=== PATIENT | female | born 1975 | race Caucasian/White ===

== ENCOUNTER 2021-01-30 17:02 | Emergency (ER) | payer BC, MEDICAID ==
[2021-01-30] MEDS ORDERED: Cyclobenzaprine 10 MG Tab PO ONE (20:01)
[2021-01-30] MEDS ORDERED: Ibuprofen 600 MG Tab PO ONE (20:01)
--- NOTE | 2021-01-30 20:39 | CR ---
Indication: Pain after fall Technique: Three views Comparison: None Findings: Bones: No evidence of fracture. Disc spaces: 8 millimeter anterolisthesis at L4-5 with disc space narrowing. Prominent facet hypertrophy. Disc space narrowing facet hypertrophy L5-S1. Scattered anterior osteophytes at the lower thoracic spine. Soft tissues: Unremarkable. Dictated by Avinash Barnes MD @ 01/30/2021 8:38:06 PM (Electronically Signed)
--- NOTE | 2021-01-30 20:46 | EDM.PDOC ---
ED HPI GENERAL MEDICAL PROBLEM - General Chief Complaint: Back Pain or Injury Stated Complaint: SLIPPED YESTERDAY, LT KNUCKLE AND BACK PAIN Time Seen by Provider: 01/30/21 19:33 - History of Present Illness INITIAL COMMENTS - FREE TEXT/NARRATIVE: HISTORY AND PHYSICAL: History of present illness: Is a 45-year-old female who presents ER today secondary to pain to her left ring finger at the PIP joint as well as pain to her right lower back that occurred after a fall earlier this morning. Patient reports that she had some discomfort to her back and increased swelling to her finger. She reports that she has 3 rings on on her left ring finger that she is unable to remove. Patient reports that she does have a history of a fracture to the finger in the past as well. Patient denies any weakness to her upper or lower extremities. Patient denies any loss of bowel or bladder function. Patient reports that she does have a history of osteoporosis to her back. Patient denies any paresthesias to her perineal region. Review of systems: As per history of present illness and below otherwise all systems reviewed and negative. Past medical history: As per history of present illness and as reviewed below otherwise nonco ntributory. Surgical history: As per history of present illness and as reviewed below otherwise noncontributory. Social history: No reported history of drug abuse. Family history: As per history of present illness and as reviewed below otherwise noncontributory. Physical exam: This patient was seen and evaluated during the 2019 SARS-CoV-2 novel coronavirus pandemic period. Community viral transmission is ongoing at time of this encounter and the emergency department is operating under pandemic response procedures. Constitutional: Patient is oriented to person, place, and time. Appears well- developed and well-nourished. No distress. HEENT: Moist mucous membranes Head: Normocephalic and atraumatic Eyes: Right eye exhibits no discharge. Left eye exhibits no discharge. No scleral icterus Neck: Normal range of motion. No tracheal deviation present. Cardiovascular: Normal rate and regular rhythm. Pulmonary: Effort normal, no respiratory distress. Abdominal: No distention Musculoskeletal: Normal range of motion Neurologic: Alert and oriented to person, place and time. Skin: [place], warm and dry. Psychiatric: Normal mood and affect. Behavior is normal. Judgment and thought content normal. Nursing note and vital signs have been reviewed Patient's ER physical exam is significant for tenderness to palpation to her right lower back. Patient has no point CT or L-spine tenderness. Patient denies any loss of consciousness or head pain. Patient does have soft tissue swelling to her proximal left ring finger with pain with range of motion to her PIP joint. Diagnostics: X-ray of lumbar spine: No acute fracture or dislocation identified. This was reviewed by myself X-ray of left index finger: No acute fracture or dislocation of PIP joint which is the area of concern. Patient does appear to have an old fracture of the DIP joint of her left ring finger which is nontender and no swelling clinically and no evidence of fracture on clinical exam. Therapeutics: 3 rings removed with ring cutters in the ED by myself. This was done without any complications or difficulty. Patient's neurological exam is normal post ring removal. Patient has brisk capillary refill no evidence of abrasions or open wounds to the finger. Assessment and plan: 45-year-old who presents ER today secondary to a fall earlier today and now has pain discomfort to her lower back as well as swelling to her left ring finger. Patient's radiologic studies have been negative for any fracture or dislocations. Patient's rings were cut off in the ED with ring cutters without complications. Patient be discharged home with a prescription for Flexeril and ibuprofen instructions to follow-up with her primary care physician. Patient is ambulating in the ED with normal gait. Patient has no difficulty with ambulating with pain or strength. Patient did receive a dose of Flexeril and ibuprofen here in the ED while waiting for x-rays reports that she does feel much better. Reassessment at the time of disposition demonstrates that the patient is in no acute distress. The patient has remained stable throughout the entire ED visit and is without objective evidence for acute process requiring urgent intervention or hospitalization. The patient is stable for discharge, counseling is provided as documented above, discussed symptomatic treatment and specific conditions for return. I have spoken with the patient/caregiver and discussed todays findings, in addition to providing specific details for the plan of care. Questions are answered and there is agreement with the plan. Definitive disposition and diagnosis as appropriate pending reevaluation and review of above. Lower Back Pain Score (Numeric/FACES): 8 Left Finger-Ring Pain Score (Numeric/FACES): 4 - Related Data Allergies Allergy/AdvReac Type Severity Reaction Status Date / Time No Known Allergies Allergy Verified 10/15/21 18:18 Home Meds: Home Meds Cyclobenzaprine [Flexeril] 10 mg PO TID PRN #20 tab 01/30/21 [Rx] Ibuprofen 600 mg PO Q6HR PRN #30 tablet 01/30/21 [Rx] Past Medical History HEENT History: Reports: Impaired Vision GAS DISPATCHER History: Reports: Other (See Below) Other GAS DISPATCHER History: tubal rupture during Musculoskeletal History: Reports: Arthritis, Other (See Below) Other Musculoskeletal History: DJD Neurological History: Reports: Migraines Psychiatric History: Reports: Anxiety Oncologic (Cancer) History: Reports: Cervix - Infectious Disease History Infectious Disease History: Reports: Chicken Pox - Past Surgical History Musculoskeletal Surgical History: Reports: None Social & Family History - Family History Family Medical History: No Pertinent Family History - Tobacco Use Tobacco Use Status *Q: Current Every Day Tobacco User Years of Tobacco use: 20 Packs/Tins Daily: 1 - Caffeine Use Caffeine Use: Reports: Coffee, Soda, Tea - Recreational Drug Use Recreational Drug Use: No ED ROS GENERAL - Review of Systems Review Of Systems: See Below ED EXAM, GENERAL - Physical Exam Exam: See Below Course - Vital Signs Last Recorded V/S: Last Vital Signs Temp 96.9 F 01/30/21 18:13 Pulse 87 01/30/21 18:13 Resp 18 01/30/21 18:13 BP 170/72 H 01/30/21 18:13 Pulse Ox 99 01/30/21 18:13 - Orders/Labs/Meds Orders: Active Orders 24 hr Category Date Time Status Fingers Fourth Digit Lt F3 [CR] Stat Exams 01/30/21 20:01 Taken Meds: Medications Discontinued Medications Generic Name Dose Route Start Last Admin Trade Name Freq PRN Reason Stop Dose Admin Cyclobenzaprine HCl 10 mg 01/30/21 20:01 01/30/21 20:08 Cyclobenzaprine 10 Mg Tab PO 01/30/21 20:02 10 mg ONETIME ONE Administration Ibuprofen 600 mg 01/30/21 20:01 01/30/21 20:08 Ibuprofen 600 Mg Tab PO 01/30/21 20:02 600 mg ONETIME ONE Administration Departure - Departure Time of Disposition: 20:44 Disposition: Home, Self-Care 01 Condition: Good Clinical Impression: Fall, Low back pain, Sprain of left ring finger - Discharge Information Instructions: Acute Back Pain, Adult, Finger Sprain, Adult Referrals: PCP,Not In Area [Primary Care Provider] - Additional Instructions: Your seen and evaluated in the ER today secondary to a fall earlier today. The x-rays did not reveal any acute fractures. Your rings have been cut off in the ED secondary to significant swelling to your left ring finger. You will be given a prescription for ibuprofen and Flexeril to help you with your back pain and finger pain. The following information is given to patients seen in the emergency department who are being discharged to home. This information is to outline your options for follow-up care. We provide all patients seen in our emergency department with a follow-up referral. The need for follow-up, as well as the timing and circumstances, are variable depending upon the specifics of your emergency department visit. If you don't have a primary care physician on staff, we will provide you with a referral. We always advise you to contact your personal physician following an emergency department visit to inform them of the circumstance of the visit and for follow-up with them and/or the need for any referrals to a consulting specialist. The emergency department will also refer you to a specialist when appropriate. This referral assures that you have the opportunity for follow-up care with a specialist. All of these measure are taken in an effort to provide you with optimal care, which includes your follow-up. Under all circumstances we always encourage you to contact your private physician who remains a resource for coordinating your care. When calling for follow-up care, please make the office aware that this follow-up is from your recent emergency room visit. If for any reason you are refused follow-up, please contact the [facility] Emergency Department at and asked to speak to the emergency department charge nurse. [facility] [address] [place] [id number] [facility] [address] [place] [id number] Sepsis Event Note (ED) - Evaluation Sepsis Screening Result: No Definite Risk - Focused Exam Vital Signs: Vital Signs Temp Pulse Resp BP Pulse Ox 01/30/21 18:13 96.9 F 87 18 170/72 H 99 - My Orders Last 24 Hours: My Active Orders 01/30/21 20:01 Fingers Fourth Digit Lt F3 [CR] Stat - Assessment/Plan Last 24 Hours: My Active Orders 01/30/21 20:01 Fingers Fourth Digit Lt F3 [CR] Stat
[2021-01-30 20:56] VITALS: BP 167/78; PULSE 83
--- NOTE | 2021-01-30 21:21 | CR ---
Indication: Pain after fall Technique: Three views Comparison: None Findings: Ossification at the medial margin of the distal interphalangeal joint of the 4th digit consistent with a chip type fracture measuring 1 millimeter. No dislocation. Mild soft tissue swelling near the proximal interphalangeal joint of the 4th digit. Dictated by Avinash Barnes MD @ 01/30/2021 9:19:48 PM (Electronically Signed)
== END 2021-01-30 20:56 | disposition home or self-care (01) ==
LOC: MW.ED 17:02
DX: S63.615A Unspecified sprain of left ring finger, initial encounter (principal); M54.50 Low back pain, unspecified; Z72.0 Tobacco use; W18.30XA Fall on same level, unspecified, initial encounter
CPT/HCPCS: 72100; 73140; 99283; A9270

== ENCOUNTER 2021-07-18 01:28 | Emergency (ER) | payer MEDICAID ==
[2021-07-18] MEDS ORDERED: traMADol 50 MG Tab PO ONE (02:51)
[2021-07-18] MEDS ORDERED: Sulfamethoxazole/Trimethoprim 800-160 MG Tab PO ONE (02:51)
[2021-07-18] MEDS ORDERED: Ibuprofen 600 MG Tab PO ONE (02:51)
[2021-07-18] MEDS ORDERED: Lidocaine 1% 5 ML VIAL INJECT ONE (02:51)
[2021-07-18 03:28] VITALS: BP 140/78; PULSE 78
== END 2021-07-18 03:28 | disposition home or self-care (01) ==
LOC: MW.ED 01:28
DX: L02.31 Cutaneous abscess of buttock (principal); A49.02 Methicillin resistant Staphylococcus aureus infection, unspecified site
CPT/HCPCS: 10061; 99282; A9270; 99283

== ENCOUNTER 2021-07-18 18:18 | Emergency (ER) | payer MEDICAID | END 2021-07-18 19:10 | disposition left against medical advice (07) | LOC: MW.ED 18:18 | DX: Z53.21 Procedure and treatment not carried out due to patient leaving prior to being seen by health care provider (principal) ==

== ENCOUNTER 2021-11-02 02:23 | Emergency (ER) | payer MEDICAID ==
[2021-11-02] MEDS ORDERED: Doxycycline 100 MG Cap PO ONE (03:22)
[2021-11-02 03:36] VITALS: BP 132/71; PULSE 80
== END 2021-11-02 03:35 | disposition home or self-care (01) ==
LOC: MW.ED 02:23
DX: L02.415 Cutaneous abscess of right lower limb (principal); Z88.1 Allergy status to other antibiotic agents
CPT/HCPCS: 99283; A9270